=== PATIENT | male | born 1985 | race Asian ===

== ENCOUNTER 2016-07-13 08:02 | Outpatient (CLI) | payer OTHER | END 2016-07-13 08:03 | disposition home or self-care (01) | DX: E78.5 Hyperlipidemia, unspecified (principal); E55.9 Vitamin D deficiency, unspecified ==

== ENCOUNTER 2016-08-10 22:09 | Emergency (ER) | payer OTHER ==
[2016-08-10] MEDS ORDERED: IBUPROFEN 800 MG TABLET PO STA (22:26)
[2016-08-10] MEDS ORDERED: IBUPROFEN 800 MG TABLET PO ONE (22:28)
[2016-08-10] MEDS ORDERED: DEXAMETHASONE 10 MG/ML VIAL PO STA (22:53)
[2016-08-10] MEDS ORDERED: DEXAMETHASONE 10 MG/ML VIAL ONE (23:04)
== END 2016-08-10 23:10 | disposition home or self-care (01) ==
DX: J02.9 Acute pharyngitis, unspecified (principal)
CPT/HCPCS: 87070; 87430; 99283; A9270

== ENCOUNTER 2017-01-07 09:24 | Outpatient (CLI) | payer OTHER ==
[2017-01-07 18:54] LABS: ALBUMIN/GLOBULIN RATIO 1.4 (1.0-2.2); BILIRUBIN,TOTAL 0.5 mg/dL (0.2-1.0); BUN - BLOOD UREA NITROGEN 8 mg/dL (6-20); CALCIUM 9.4 mg/dL (8.5-10.3); CARBON DIOXIDE - CO2 28 mmol/L (21-32); CHLORIDE 104 mmol/L (101-111); CHOL/HDL RATIO 5.5 (<5.0); CHOLESTEROL 238 mg/dL; CREATININE 0.8 mg/dL (0.6-1.2); GFR - MDRD 113 (>89); GLUCOSE 90 mg/dL (70-100); HDL CHOLESTEROL 43 mg/dL; LDL/HDL RATIO 3.8 (<3.6); POTASSIUM 3.4 mmol/L (3.5-5.0); SODIUM 140 mmol/L (135-145); TOTAL PROTEIN 8.4 g/dL (6.7-8.2); TRIGLYCERIDES 152 mg/dL; VLDL CHOLESTEROL 30 mg/dL
[2017-01-08 10:21] LABS: TEST RESULT REPORT (())
== END 2017-01-07 09:25 | disposition home or self-care (01) ==
LOC: LAB.F 09:24
PROVIDERS: ATTEND Nurse Practitioner Family
DX: Z78.9 Other specified health status (principal)
CPT/HCPCS: 36415; 80053; 80061; 81599; 82306; 86592; 86695; 86696; 86803; 87389; 87491; 87591

== ENCOUNTER 2017-05-20 09:41 | Outpatient (CLI) | payer OTHER ==
[2017-05-21 10:36] LABS: HIV AG/AB 4TH GEN NON-REACTIVE (NON-REACTIVE)
[2017-05-21 12:16] LABS: HEPATITIS C ANTIBODY NON-REACTIVE (NON-REACTIVE)
[2017-05-25 12:37] LABS: HSV 2 IGG TYPE SPECIFIC AB <0.90 index
== END 2017-05-20 09:42 | disposition home or self-care (01) ==
LOC: LAB.F 09:41
PROVIDERS: ATTEND Nurse Practitioner Family
DX: Z11.3 Encounter for screening for infections with a predominantly sexual mode of transmission (principal)
CPT/HCPCS: 36415; 81599; 86592; 86695; 86696; 86803; 87389; 87491; 87591